=== PATIENT | female | born 1970 | race Caucasian/White ===

== ENCOUNTER 2017-05-20 17:45 | Emergency (ER) | payer OTHER ==
[~2017-05-20] VITALS: Ht 157.5 cm; Wt 74.4 kg
[2017-05-20 17:49] VITALS: BP 151/91
== END 2017-05-20 19:27 | disposition home or self-care (01) ==
LOC: ED 17:45
DX: S82.892A Other fracture of left lower leg, initial encounter for closed fracture (principal); M06.9 Rheumatoid arthritis, unspecified; W17.89XA Other fall from one level to another, initial encounter; Y93.89 Activity, other specified; Y99.8 Other external cause status; Y92.89 Other specified places as the place of occurrence of the external cause
CPT/HCPCS: J1885; Q0092

== ENCOUNTER 2017-05-26 08:57 | Day surgery (SDC) | payer OTHER ==
[2017-05-25 18:00] LABS: UA SPECIFIC GRAVITY 1.015 (1.005-1.035); microscopic required? YES; urine erythrocyte 1+ (NEGATIVE)
[2017-05-25 18:09] LABS: BASOPHIL % 0.5 % (0-2)
[2017-05-25 18:12] LABS: PLATELET COUNT 436 x10^3mcL (130-400); RED CELL DISTRIBUTION WIDTH 18.8 % (11.5-14.5)
[2017-05-25 18:24] LABS: CHLORIDE SERUM 104 mmol/L (98-107); CREATININE SERUM 0.6 mg/dL (0.6-1.0); GFR1 > 60 mL/min; GLUCOSE SERUM 83 mg/dL (74-106); POTASSIUM SERUM 3.5 mmol/L (3.5-5.1); SODIUM SERUM 138 mmol/L (136-145)
[~2017-05-26] VITALS: Ht 154.9 cm; Wt 70.4 kg
[2017-05-26 09:31] VITALS: BP 150/91
[2017-05-26 15:38] VITALS: BP 119/68
[2017-05-26 16:56] VITALS: BP 137/74
[2017-05-26 21:04] VITALS: BP 107/65
[2017-05-27 05:45] VITALS: BP 112/62
[2017-05-27 07:27] LABS: RAPID PLASMA REAGIN Non Reactive (Non Reactive)
[2017-05-27 09:10] VITALS: BP 119/71
[2017-05-27 12:16] VITALS: BP 132/79
[2017-05-27 13:16] VITALS: BP 132/79
== END 2017-05-27 13:45 | disposition home or self-care (01) ==
LOC: RD 08:57 → DS 11:00 → RD 11:00 → OR 11:00 → MU 13:17 → RD 05-27 13:45
PROVIDERS: Neuromusculoskeletal Medicine, Sports Medicine
PROC: 0QSH04Z Reposition Left Tibia with Internal Fixation Device, Open Approach (ICD-10-PCS; principal; 2017-05-26 11:00)
DX: S82.52XA Displaced fracture of medial malleolus of left tibia, initial encounter for closed fracture (principal); M32.9 Systemic lupus erythematosus, unspecified; M06.9 Rheumatoid arthritis, unspecified; D64.9 Anemia, unspecified; X58.XXXA Exposure to other specified factors, initial encounter; Y92.9 Unspecified place or not applicable
CPT/HCPCS: 76001; 82962; 97116-GP; 97530-GP; C1713; J0690; J1170; J1885; J2250; J2270; J2405; J2704; J3010; J3490; J7030